=== PATIENT | male | born 1990 | race Caucasian/White ===

== ENCOUNTER 2022-08-18 22:36 | Emergency (ER) | payer SELFPAY ==
[~2022-08-18] VITALS: Ht 185.4 cm; Wt 121.0 kg
[2022-08-18] MEDS ORDERED: HYDROCODONE/ACETAMINOPHEN 5/325MG TABLET PO STA (23:48)
[2022-08-19] MEDS ORDERED: CEFAZOLIN 1000MG PREMIX 50 ML IV ONE
[2022-08-19] MEDS ORDERED: TETANUS, DIPHTHERIA, PERTUSSIS VAC/PF 0.5ML (>10YR OLD) IM ONE
[2022-08-19 01:37] VITALS: BP 157/110
[2022-08-19] MEDS ORDERED: HYDR-4001 PO (01:39)
[2022-08-19] MEDS ORDERED: CEPH500C2 PO (01:39)
[2022-08-19] MEDS ORDERED: IBUP-2029 PO (01:39)
== END 2022-08-19 03:31 | disposition home or self-care (01) ==
LOC: ER 22:36
DX: S81.831A Puncture wound without foreign body, right lower leg, initial encounter (principal); M25.571 Pain in right ankle and joints of right foot; W34.09XA Accidental discharge from other specified firearms, initial encounter; Y93.89 Activity, other specified; Y92.89 Other specified places as the place of occurrence of the external cause; Y99.8 Other external cause status; J45.909 Unspecified asthma, uncomplicated
CPT/HCPCS: 73590; 73630; 90471; 90715; 96365; 99284; J0690; Z7610